=== PATIENT | female | born 1990 ===

== ENCOUNTER 2017-12-14 13:13 | Emergency (ER) | payer OTHER ==
[2017-12-14 13:29] VITALS: TEMP 98.2
--- NOTE | 2017-12-14 13:50 | C.PDOC ---
History Of Present Illness 27 y/o female presents to the ED c/o constant low right back pain radiating to the right suprapubic area for 1 week. The patient states that she had 2 episodes of vomiting on . Pain worsened with sitting or laying on the right side. The patient denies diarrhea, headaches, dizziness, and fever. Time Seen by Provider: 12/14/17 13:49 Chief Complaint (Nursing): Back Pain History Per: Patient History/Exam Limitations: language barrier Onset/Duration Of Symptoms: Days Current Symptoms Are (Timing): Still Present Previous Symptoms: Back Pain (low right pain radiating to the right suprapubic area. ) Additional History Per: Patient Past Medical History Reviewed: Historical Data, Nursing Documentation, Vital Signs Vital Signs: Last Vital Signs Temp 98.2 F 12/14/17 13:22 Pulse 58 L 12/14/17 19:46 Resp 16 12/14/17 19:46 BP 115/74 12/14/17 19:46 Pulse Ox 100 12/14/17 19:46 Family History: States: No Known Family Hx - Social History Hx Alcohol Use: No Hx Substance Use: No - Immunization History Hx Tetanus Toxoid Vaccination: No Hx Influenza Vaccination: No Hx Pneumococcal Vaccination: No Review Of Systems Except As Marked, All Systems Reviewed And Found Negative. Constitutional: Positive for: Other (normal appetite). Negative for: Fever Cardiovascular: Negative for: Chest Pain Respiratory: Negative for: Cough, Shortness of Breath Gastrointestinal: Positive for: Nausea. Negative for: Vomiting, Diarrhea, Constipation, Melena Genitourinary: Negative for: Dysuria, Frequency, Hematuria, Vaginal Discharge, Vaginal Bleeding Musculoskeletal: Positive for: Back Pain Skin: Negative for: Rash Neurological: Negative for: Weakness, Numbness Physical Exam - Physical Exam Appears: Well, Non-toxic Skin: Warm, Dry Head: Atraumatic, Normacephalic Eye(s): bilateral: PERRL Oral Mucosa: Moist Neck: Supple Cardiovascular: Rhythm Regular Respiratory: No Decreased Breath Sounds, No Accessory Muscle Use, No Rales, No Rhonchi, No Wheezing Gastrointestinal/Abdominal: Soft, No Tenderness, No Guarding, No Rebound Back: No Decreased ROM, Paraspinal Tenderness (right lumbar ) Extremity: Normal ROM, No Swelling Neurological/Psych: Oriented x3, Normal Motor, Normal Sensation, Other (nl strenth in b/l hip/knee/ankle flex/ext and EHL. reflexes sym, senstation intact. nag babinski no clonus.) ED Course And Treatment - Laboratory Results Result Diagrams: 12/14/17 14:11 12/14/17 14:11 O2 Sat by Pulse Oximetry: 100 (RA) - CT Scan/US abd/pelvis/Transvaginal US Other Rad Studies (CT/US): Read By Radiologist CT/US Interpretation: HISTORY: r low abd pain r/o torsion. COMPARISON: None available. TECHNIQUE: Real-time transabdominal pelvic ultrasound was performed. In addition a transvaginal pelvic ultrasound was necessary to better depict pelvic anatomy. FINDINGS: UTERUS: Measures 6.5 x 3.3 x 4.9 cm. Anteverted. Posterior fundal fibroid measures approximately 1.6 x 1.4 x 1.5 cm. ENDOMETRIUM: Measures 1.0 cm in diameter. CERVIX: No cervical abnormality identified. RIGHT OVARY: Measures 3.5 x 2.4 x 3.0 cm. Blood flow is demonstrated. LEFT OVARY: Measures 3.8 x 1.8 x 3.2 cm. Blood flow is demonstrated. FREE FLUID: No significant free fluid noted. OTHER FINDINGS: None. IMPRESSION: Posterior fundal fibroid measures approximately 1.6 x 1.4 x 1.5 cm. Progress Note: Transvaginal US and UA were performed. The patient was given Toradol for the pain. The patient is afebrile. 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 Disposition - Disposition Referrals: [facility] at [facility] [Outside] Disposition: HOME/ ROUTINE Disposition Time: 19:46 Condition: GOOD Additional Instructions: Please follow up with a primary doctor. Return to the ER for any worsening symptoms, fever, vomiting, or for any other concerns. Prescriptions: Ciprofloxacin [Cipro] 500 mg PO BID #20 tab Metronidazole [Flagyl] 500 mg PO TID #30 tablet Instructions: Enteritis (ED) Forms: Gen Discharge Inst Thai, [facility] (Thai), School Excuse, Work Excuse Print Language: CENTRAL AFRICAN - Clinical Impression Clinical Impression: Low back pain, Abdominal pain - Scribe Statement The provider has reviewed the documentation as recorded by the Scribe Alisha Benavides
[2017-12-14 14:15] LABS: BASO # 0.1 K/uL (0.0-0.2); EOS # 0.2 K/uL (0.0-0.7); EOS % 2.7 % (0.0-4.0); HEMOGLOBIN 13.6 g/dL (11.0-16.0); LYMPH # 2.3 K/uL (1.0-4.3); LYMPH % 35.6 % (20.0-40.0); MEAN CELL VOLUME 85.9 fL (81.0-99.0); MEAN CORPUSCULAR HEMOGLOBIN 29.5 pg (27.0-31.0); MEAN CORPUSCULAR HGB CONC 34.4 g/dL (33.0-37.0); MEAN PLATELET VOLUME 9.5 fL (7.2-11.7); MONO # 0.6 K/uL (0.0-0.8); MONO % 9.6 % (0.0-10.0); NEUT # 3.2 K/uL (1.8-7.0); NEUT % 51.1 % (50.0-75.0); NRBC % 0.1 % (0.0-2.0); RBC 4.63 Mil/uL (3.80-5.20); RED CELL DISTRIBUTION WIDTH 12.9 % (11.5-14.5); WHITE BLOOD COUNT 6.3 K/uL (4.8-10.8)
[2017-12-14 14:18] LABS: HCG,QUALITATIVE URINE NEGATIVE (NEGATIVE)
[2017-12-14 14:21] LABS: SQUAMOUS EPITHIAL 2 /hpf (0-5); URINE BILIRUBIN NEGATIVE (NEGATIVE); URINE BLOOD NEGATIVE (NEGATIVE); URINE CLARITY Clear (Clear); URINE COLOR Yellow (YELLOW); URINE GLUCOSE (UA) NORMAL (Normal); URINE LEUKOCYTE ESTERASE NEG Leu/uL (Negative); URINE NITRATE NEGATIVE (NEGATIVE); URINE PROTEIN NEGATIVE (NEGATIVE)
[2017-12-14 14:29] LABS: ALB/GLOB RATIO 1.3 (1.0-2.1); ALBUMIN 4.4 g/dL (3.5-5.0); ALT/SGPT 14 U/L (9-52); AST/SGOT 19 U/L (14-36); BLOOD UREA NITROGEN 13 mg/dL (7-17); CALCIUM 8.6 mg/dl (8.6-10.4); GFR AFRICAN-AMERICAN > 60; GFR NON-AFRICAN AMERICAN > 60; LIPASE 112 U/L (23-300)
[2017-12-14 15:41] VITALS: RESP 16
--- NOTE | 2017-12-14 16:42 | US ---
HISTORY: r low abd pain r/o torsion COMPARISON: None available. TECHNIQUE: Real-time transabdominal pelvic ultrasound was performed. In addition a transvaginal pelvic ultrasound was necessary to better depict pelvic anatomy. FINDINGS: UTERUS: Measures 6.5 x 3.3 x 4.9 cm. Anteverted. Posterior fundal fibroid measures approximately 1.6 x 1.4 x 1.5 cm. ENDOMETRIUM: Measures 1.0 cm in diameter. CERVIX: No cervical abnormality identified. RIGHT OVARY: Measures 3.5 x 2.4 x 3.0 cm. Blood flow is demonstrated. LEFT OVARY: Measures 3.8 x 1.8 x 3.2 cm. Blood flow is demonstrated. FREE FLUID: No significant free fluid noted. OTHER FINDINGS: None. IMPRESSION: Posterior fundal fibroid measures approximately 1.6 x 1.4 x 1.5 cm.
[2017-12-14] MEDS ORDERED: Iodixanol 320 mg/ml 150 ml Bottle IV ONE (17:23)
[2017-12-14 18:21] VITALS: O2SAT 100
--- NOTE | 2017-12-14 19:16 | CT ---
EXAM: CT Abdomen and Pelvis With Intravenous Contrast EXAM DATE/TIME: 12/14/2017 5:13 PM CLINICAL HISTORY: 27 years old, female; Pain; Abdominal pain; Generalized TECHNIQUE: Axial computed tomography images of the abdomen and pelvis with intravenous contrast. All CT scans at this facility use one or more dose reduction techniques, viz.: automated exposure control; ma/kV adjustment per patient size (including targeted exams where dose is matched to indication; i.e. head); or iterative reconstruction technique. Coronal and sagittal reformatted images were created and reviewed. CONTRAST: 100 mL of [id number] administered intravenously. COMPARISON: There are no prior studies for comparison. FINDINGS: Lower thorax: Heart size is normal. Lung bases are clear ABDOMEN: Liver: There is fatty infiltration of the liver. Gallbladder and bile ducts: unremarkable Pancreas: unremarkable Spleen: unremarkable Adrenals: unremarkable Kidneys and ureters: unremarkable Stomach and bowel: Stomach is partially distended. Rotation is normal. There is no obstruction. There are mildly distended small bowel loops in the right lower quadrant. Terminal ileum is unremarkable. Appendix is not visualized. There is no pericecal inflammation.There are no focal colonic abnormalities. Appendix: See stomach and bowel PELVIS: Bladder: unremarkable Reproductive: Uterus and adnexal structures are unremarkable. Uterus is anteflexed. There is a small exophytic fibroid. Adnexa are unremarkable. ABDOMEN and PELVIS: Intraperitoneal space: There is no significant fluid.There is no free air. There is no free air or free fluid. Bones/joints: There are no acute osseous abnormalities. Soft tissues: unremarkable Vasculature: Vascular structures are unremarkable. Vascular structures are unremarkable. Lymph nodes: There is no pathologic adenopathy. There is shotty adenopathy. IMPRESSION: Fatty liver, no acute solid visceral abnormality; nonvisualization the appendix with no CT findings of appendicitis; possible enteritis, no obstruction; shotty mesenteric adenopathy Additional nonemergent findings as described above.
[2017-12-14 19:47] VITALS: BP 115/74; PULSE 58
== END 2017-12-14 19:53 | disposition home or self-care (01) ==
LOC: C.ER 13:13
DX: M54.5 Low back pain (principal); R10.30 Lower abdominal pain, unspecified
CPT/HCPCS: 74177; 76830; 76856; 80053; 81001; 83690; 84703; 85025; 87086; 96374; 99285; J1885; Q9967

== ENCOUNTER 2018-06-13 12:05 | Emergency (ER) | payer OTHER ==
--- NOTE | 2018-06-13 13:32 | C.PDOC ---
History Of Present Illness 27 y/o female presents to ED with c/o suprapubic pain for 2 days radiating to right lower back associated with nausea. Patient states she thought symptoms were related to menses, but menses went away today and symptoms persisted. Patient admits that menses this month came in less amount than usual. Patient denies fever, vomiting, dysuria or any other complaints at this time. Time Seen by Provider: 06/13/18 13:09 Chief Complaint (Nursing): Abdominal Pain History Per: Patient History/Exam Limitations: no limitations Onset/Duration Of Symptoms: Days Current Symptoms Are (Timing): Still Present Location Of Pain/Discomfort: Suprapubic Past Medical History Reviewed: Historical Data, Nursing Documentation, Vital Signs Vital Signs: Last Vital Signs Temp 98.3 F 06/13/18 12:10 Pulse 85 06/13/18 12:10 Resp 18 06/13/18 12:10 BP 123/86 06/13/18 12:10 Pulse Ox 100 06/13/18 13:53 - Medical History PMH: No Chronic Diseases Surgical History: No Surg Hx Family History: States: No Known Family Hx - Social History Hx Alcohol Use: No Hx Substance Use: No - Immunization History Hx Tetanus Toxoid Vaccination: No Hx Influenza Vaccination: No Hx Pneumococcal Vaccination: No Review Of Systems Constitutional: Negative for: Fever, Chills Gastrointestinal: Positive for: Nausea, Abdominal Pain. Negative for: Vomiting Genitourinary: Negative for: Dysuria Musculoskeletal: Positive for: Back Pain Skin: Negative for: Rash Physical Exam - Physical Exam Appears: Non-toxic, No Acute Distress Skin: Warm, Dry, No Rash Head: Atraumatic, Normacephalic Eye(s): bilateral: Normal Inspection Oral Mucosa: Moist Neck: Normal ROM, Supple Cardiovascular: Rhythm Regular Respiratory: Normal Breath Sounds, No Rales, No Rhonchi, No Wheezing Gastrointestinal/Abdominal: Soft, No Tenderness, No Guarding, No Rebound Back: No CVA Tenderness, Other (right lower back tenderness) Neurological/Psych: Oriented x3, Normal Speech, Normal Motor, Normal Sensation ED Course And Treatment - Laboratory Results Result Diagrams: 06/13/18 14:07 06/13/18 14:07 O2 Sat by Pulse Oximetry: 100 (RA) Pulse Ox Interpretation: Normal Reevaluation Time: 16:02 Reassessment Condition: Improved Disposition Counseled Patient/Family Regarding: Studies Performed, Diagnosis, Need For Followup, Rx Given - Disposition Referrals: [facility] [Outside] [facility] [Outside] Disposition: HOME/ ROUTINE Disposition Time: 16:03 Condition: IMPROVED Prescriptions: Ibuprofen [Motrin] 600 mg PO Q6 #30 tab Instructions: Uterine Fibroids (DC) Forms: [employer] (Kazakh), Work Excuse Print Language: GREENLANDIC - Clinical Impression Clinical Impression: Pelvic pain, Fibroid - Scribe Statement The provider has reviewed the documentation as recorded by the Susie Marshall All medical record entries made by the Nannetteibhallie were at my direction and personally dictated by me. I have reviewed the chart and agree that the record accurately reflects my personal performance of the history, physical exam, medical decision making, and the department course for this patient. I have also personally directed, reviewed, and agree with the discharge instructions and disposition.
[2018-06-13] MEDS ORDERED: Sodium Chloride 0.9% 1,000 ML IV ONE (14:03)
[2018-06-13 14:12] LABS: SQUAMOUS EPITHIAL 4 /hpf (0-5); URINE BILIRUBIN NEGATIVE (NEGATIVE); URINE BLOOD 3+ (NEGATIVE); URINE CALCIUM OXALATE CRYSTALS OCC /hpf (<OCC); URINE CLARITY Hazy (Clear); URINE COLOR Yellow (YELLOW); URINE GLUCOSE (UA) NORMAL (Normal); URINE LEUKOCYTE ESTERASE NEG Leu/uL (Negative); URINE PROTEIN NEGATIVE (NEGATIVE); URINE UROBILINOGEN NORMAL mg/dL (0.2-1.0)
[2018-06-13 14:13] LABS: BASO % 0.7 % (0.0-2.0); EOS # 0.2 K/uL (0.0-0.7); EOS % 3.1 % (0.0-4.0); LYMPH % 35.5 % (20.0-40.0); MEAN CELL VOLUME 86.6 fL (81.0-99.0); MEAN CORPUSCULAR HEMOGLOBIN 29.2 pg (27.0-31.0); MEAN CORPUSCULAR HGB CONC 33.7 g/dL (33.0-37.0); MEAN PLATELET VOLUME 9.6 fL (7.2-11.7); MONO # 0.4 K/uL (0.0-0.8); MONO % 7.3 % (0.0-10.0); NEUT % 53.4 % (50.0-75.0); NRBC % 0.1 % (0.0-2.0); RBC 4.47 Mil/uL (3.80-5.20); WHITE BLOOD COUNT 5.7 K/uL (4.8-10.8)
[2018-06-13 14:27] LABS: BLOOD UREA NITROGEN 15 mg/dL (7-17); CALCIUM 9.5 mg/dl (8.6-10.4); GFR AFRICAN-AMERICAN > 60; GFR NON-AFRICAN AMERICAN > 60
--- NOTE | 2018-06-13 15:56 | US ---
Date of service: 06/13/2018 HISTORY: Pelvic pain RO TORSION COMPARISON: 12/14/2017. TECHNIQUE: Transabdominal and transvaginal pelvic ultrasound was performed. FINDINGS: UTERUS: Measures 6.7 x 3.1 x 4 point cm. Anteverted and normal in size. There is redemonstration of an essentially stable 2.0 x 1.3 x 1.6 cm subserosal posterior fundal fibroid. ENDOMETRIUM: Measures 3.0 mm in diameter. Normal in appearance. CERVIX: No cervical abnormality identified. RIGHT OVARY: Measures 4.2 x 2.2 x 2.5 cm. No solid mass. Normal flow. LEFT OVARY: Measures 3.9 x 3.1 x 2.1 cm. No solid mass. Normal flow. FREE FLUID: No significant free fluid noted. OTHER FINDINGS: None. IMPRESSION: 2.0 x 1.3 x 1.6 cm subserosal posterior fundal fibroid not significantly changed since the prior examination. No evidence for ovarian cyst.
[2018-06-13 16:38] VITALS: BP 116/78; PULSE 56; RESP 14; TEMP 98.6; O2SAT 99
== END 2018-06-13 16:35 | disposition home or self-care (01) ==
LOC: C.ER 12:05
DX: D25.9 Leiomyoma of uterus, unspecified (principal); R10.2 Pelvic and perineal pain
CPT/HCPCS: 76830; 76856; 80048; 81001; 85025; 96361; 96374; 96375; 99284; J1885; J2405; J7030

== ENCOUNTER 2019-01-02 09:28 | Outpatient (CLI) | payer MEDICAID | END 2019-01-02 09:29 | disposition home or self-care (01) | LOC: C.LAB 09:28 | DX: Z34.92 Encounter for supervision of normal pregnancy, unspecified, second trimester (principal) ==

== ENCOUNTER 2019-01-28 09:01 | Outpatient (CLI) | payer MEDICAID | END 2019-01-28 09:02 | disposition home or self-care (01) | LOC: C.LAB 09:01 | DX: Z34.93 Encounter for supervision of normal pregnancy, unspecified, third trimester (principal) ==

== ENCOUNTER 2019-02-20 09:31 | Outpatient (CLI) | payer MEDICAID | END 2019-02-20 09:32 | disposition home or self-care (01) | LOC: C.LAB 09:31 | DX: Z34.93 Encounter for supervision of normal pregnancy, unspecified, third trimester (principal) ==

== ENCOUNTER 2019-03-20 22:36 | Inpatient (IN) | payer SELFPAY ==
[2019-03-20 23:21] VITALS: BMI 28.9
[2019-03-20 23:43] LABS: SQUAMOUS EPITHIAL 9 /hpf (0-5); URINE BILIRUBIN NEGATIVE (NEGATIVE); URINE BLOOD NEGATIVE (NEGATIVE); URINE CLARITY Clear (Clear); URINE COLOR Straw (YELLOW); URINE GLUCOSE (UA) NORMAL (Normal); URINE LEUKOCYTE ESTERASE 1+ Leu/uL (Negative); URINE PROTEIN NEGATIVE (NEGATIVE); URINE UROBILINOGEN NORMAL mg/dL (0.2-1.0)
--- NOTE | 2019-03-21 00:31 | OBHP ---
Datetime: 03/21/2019 00:19 IP Adm Impression: Term, intrauterine ; Active labor; Ruptured Membranes IP Admit Plan: Admit to unit; Initiate labor protocol Admit Comment, IP Provider: 28 YO female G1 with an IUP at 40.3 weeks and presented with c/o of UC's Q 3-5 minutes since about 9PM and associated with a watery discharge that feels like "I am Peeing on myself". Denies V B or any other problems. Admits to adequate FM. PMHx and PSHx Negative Meds PNV NKDA Social Hx denies x 3 PE as noted above A/P Term SROM - clear fluid In labor GBS Negative NST reactive Will admit for a vaginal delivery Undecided re Epidural Anesthesia and counseled about it. See orders Pelvic Type - PN: Adequate Extremities - PN: Normal Abdomen - PN: Normal Back - PN: Normal Breast - PN: Not Done Lungs - PN: Normal Heart - PN: Normal Thyroid - PN: Normal Neurologic - PN: Normal HEENT - PN: Normal General - PN: Normal Presentation-Admit: Vertex FHR - Baseline A Provider: 130 Amniotic Fluid Color, Provider: Clear Membranes, Provider: Ruptured Contraction Comments Provider: 3-4 Gestation - Est Wks by US: 40.3 Pool Provider: Positive Nitrazine Provider: Positive IP Hx Assessment: The History has been Reviewed and is Current EGA AdmitDate IP: 40.3 Vital Signs Provider: Reviewed IP Indication for Induction: Not Applicable IP Chief Complaint: Uterine contractions; Suspected ruptured membranes NICHD Variability Prov Fetus A: Moderate 6-25bpm NICHD Accel Fetus A IP Provider: 10X10 FHR Category Provider Fetus A: Category I NICHD Decel Fetus A IP Provider: None Dilatation, Provider: 3 Effacement, Provider: 100 Station, Provider: -2 Genitourinary Exam: Normal DTRs - PN: Normal
--- NOTE | 2019-03-21 00:41 | OBADHP ---
Datetime: 03/21/2019 00:19 Admit Comment, IP Provider: 28 YO female G1 with an IUP at 40.3 weeks and presented with c/o of UC's Q 3-5 minutes since about 9PM and associated with a watery discharge that feels like "I am Peeing on myself". Denies V B or any other problems. Admits to adequate FM. PMHx and PSHx Negative Meds PNV NKDA Social Hx denies x 3 PE as noted above A/P Term SROM - clear fluid In labor GBS Negative NST reactive Will admit for a vaginal delivery Undecided re Epidural Anesthesia and counseled about it. See orders Pelvic Type - PN: Adequate Extremities - PN: Normal Abdomen - PN: Normal Back - PN: Normal Breast - PN: Not Done Lungs - PN: Normal Heart - PN: Normal Thyroid - PN: Normal Neurologic - PN: Normal HEENT - PN: Normal General - PN: Normal Presentation-Admit: Vertex FHR - Baseline A Provider: 130 Amniotic Fluid Color, Provider: Clear Membranes, Provider: Ruptured Contraction Comments Provider: 3-4 Gestation - Est Wks by US: 40.3 Pool Provider: Positive Nitrazine Provider: Positive IP Hx Assessment: The History has been Reviewed and is Current Vital Signs Provider: Reviewed IP Chief Complaint: Uterine contractions; Suspected ruptured membranes NICHD Variability Prov Fetus A: Moderate 6-25bpm NICHD Accel Fetus A IP Provider: 10X10 FHR Category Provider Fetus A: Category I NICHD Decel Fetus A IP Provider: None Dilatation, Provider: 3 Effacement, Provider: 100 Station, Provider: -2 Genitourinary Exam: Normal DTRs - PN: Normal EGA AdmitDate IP: 40.3 IP Adm Impression: Term, intrauterine ; Active labor; Ruptured Membranes IP Admit Plan: Admit to unit; Initiate labor protocol
[2019-03-21] MEDS ORDERED: Lactated Ringer's 1,000 ML IV ONE (00:44)
[2019-03-21] MEDS ORDERED: Lactated Ringer's 1,000 ML IV SCH (00:45)
[2019-03-21 01:10] LABS: BASO % 0.1 % (0.0-2.0); EOS # 0.1 K/uL (0.0-0.7); EOS % 1.2 % (0.0-4.0); HEMOGLOBIN 12.6 g/dL (11.0-16.0); LYMPH # 2.2 K/uL (1.0-4.3); LYMPH % 22.5 % (20.0-40.0); MEAN CELL VOLUME 86.6 fL (81.0-99.0); MEAN CORPUSCULAR HEMOGLOBIN 28.9 pg (27.0-31.0); MEAN CORPUSCULAR HGB CONC 33.4 g/dL (33.0-37.0); MEAN PLATELET VOLUME 10.7 fL (7.2-11.7); MONO # 0.6 K/uL (0.0-0.8); MONO % 5.7 % (0.0-10.0); NEUT # 6.8 K/uL (1.8-7.0); NEUT % 70.5 % (50.0-75.0); RBC 4.37 Mil/uL (3.80-5.20); RED CELL DISTRIBUTION WIDTH 14.4 % (11.5-14.5); WHITE BLOOD COUNT 9.7 K/uL (4.8-10.8)
[2019-03-21 01:21] LABS: ALB/GLOB RATIO 1.1 (1.0-2.1); ALBUMIN 3.8 g/dL (3.5-5.0); ALT/SGPT 13 U/L (9-52); AST/SGOT 21 U/L (14-36); BLOOD UREA NITROGEN 9 mg/dL (7-17); CALCIUM 9.4 mg/dl (8.6-10.4); GFR NON-AFRICAN AMERICAN > 60
[2019-03-21] MEDS: AMPicillin 1 GM in Sodium Chloride 0.9% 100 ML IVPB SCH ×2 (01:21→10:42)
[2019-03-21] MEDS ORDERED: Fentanyl/Bupivacaine HCl 250 ML EPI ONE (02:07)
[2019-03-21] MEDS ORDERED: Oxytocin 30 UNIT in NS 500 ml 30 UNITS/500 ML BAG IV ONE (06:57)
[2019-03-21] MEDS ORDERED: Oxytocin 30 UNIT in NS 500 ml 30 UNITS/500 ML BAG IV SCH (07:00)
--- NOTE | 2019-03-21 07:12 | OBPN ---
Datetime: 03/21/2019 07:02 IP Progress Impression: Normal progression of labor; Reassuring heart rate IP Informed Consent Obtain: Vaginal Delivery IP Procedures: Sterile Vag Exam; Epidural Placement IP Progress Plan: Augmentation Membranes, Provider: Ruptured Amniotic Fluid Color, Provider: Clear Contraction Comments Provider: 4-5 FHR - Baseline A Provider: 130 Gestation - Est Wks by US: 40.3 Presentation-Admit: Vertex IP Progress Note Comment: Pt seen and examined Epidural working well Progressing in labor VSS, Afebrile after SROM Will start Pitocin for Augmentation Anticipate Vaginal Delivery Vital Signs Provider: Reviewed; Within Normal Limits NICHD Accel Fetus A IP Provider: 10X10 NICHD Variability Prov Fetus A: Moderate 6-25bpm Dilatation, Provider: 5 Effacement, Provider: 100 Station, Provider: -1 Datetime: 03/21/2019 00:19 Pool Provider: Positive Nitrazine Provider: Positive FHR Category Provider Fetus A: Category I NICHD Decel Fetus A IP Provider: None
[2019-03-21] MEDS ORDERED: Sodium Citrate/Citric Acid 15 ml Sol ONE (07:32)
[2019-03-21] MEDS ORDERED: cefOXitin IV 2 gm in Dextrose 0 GM/0 ML BAG IVPB ONE (07:33)
[2019-03-21] MEDS ORDERED: Oxycodone/Acetaminophen 5/325 mg Tab PO PRN (14:00)
--- NOTE | 2019-03-21 14:06 | OBDS ---
DELIVERY PERSONNEL Delivery Doctor: Dr. flory Barton Nurse: Nyasia Cha Assembler And Tester Electronics: Linda Pedersen RN Anesthesiologist: Handy MATERNAL INFORMATION Delivery Anesthesia: Epidural Estimated Blood Loss (ml): 250 Placenta Cultured: No Maternal Complications: None Provider Comments: The head was delivered over an intact perieum. the head delivered PASCALE. No n uchal cord was noted. The anterior and posterior shoulder delivered w/o difficulty. The cord was clam ped cut and infant was handed to peds for futher care. The placenta was delivered intact with 3 vesse l cord. There was a second degree perineal lacteraion that was noted and repaired with 2.0 vicyl x 2 . The hemostasis was excellent. All sponge and insturment count was noted to be correct at the end of the procedure. LABOR SUMMARY EDC: 03/18/2019 00:00 No. Babies in Womb: 1 Attempted: No Labor Anesthesia: Epidural LABOR INFORMATION Reason for Induction: Not Applicable Onset of Labor: 03/21/2019 00:00 Complete Dilatation: 03/21/2019 12:15 Oxytocin: Augmentation Group B Beta Strep: Negative Antibiotics # of Doses: 2 Steroids Given: None Reason Steroids Not Administered: Not Applicable MEMBRANES Membranes Rupture Method: Spontaneous Rupture of Membranes: 03/21/2019 00:00 Length of Rupture (hrs): 13.53 Amniotic Fluid Color: Clear Amniotic Fluid Amount: Small Amniotic Fluid Odor: None STAGES OF LABOR Stage 1 hrs: 12 Stage 1 min: 15 Stage 2 hrs: 1 Stage 2 min: 17 Stage 3 hrs: 0 Stage 3 min: 4 Total Time in Labor hrs: 13 Total Time in Labor min: 36 VAGINAL DELIVERY Laceration Extension: Second Degree Laceration Type: Vaginal Laceration Repair Note: THE 2ND DEGREE PERINEAL LACERATIONA WAS REPAIRED WITH 2.0 VICRYL. X 2 BABY A INFORMATION Delivery Date/Time: 03/21/2019 13:32 Method of Delivery: Vaginal Born in Route : Yes : N/A Forceps: N/A Vacuum Extraction: N/A Shoulder Dystocia : No SHOULDER DYSTOCIA BABY A Delivery Date/Time: 03/21/2019 13:32 PRESENTATION/POSITION BABY A Presentation: Cephalic Cephalic Presentation: Vertex Vertex Position: Left Occipital Anterior Breech Presentation: N/A PLACENTA INFORMATION BABY A Placenta Delivery Time : 03/21/2019 13:36 Placenta Method of Delivery: Spontaneous Placenta Status: Delivered SCORES BABY A Heart Rate 1 min: >100 bpm Resp Effort 1 min: Good Cry Reflex Irritability 1 min: Cough or Sneeze or Pulls Away Muscle Tone 1 min: Active Motion Color 1 min: Body [place], Extremities Blue Resuscitation Effort 1 min: N/A SCORE 1 MIN: 9 Heart Rate 5 min: >100 bpm Resp Effort 5 min: Good Cry Reflex Irritability 5 min: Cough or Sneeze or Pulls Away Muscle Tone 5 min: Active Motion Color 5 min: Body [place], Extremities Blue Resuscitation Effort 5 min: N/A SCORE 5 MIN: 9 INFANT INFORMATION BABY A Gestational Age at Delivery: 40.0 Gestational Status: Term Outcome : Liveborn Infant Condition : Stable Sex: Female IDENTIFICATION/MEDS BABY A ID Band Number: [id number] ID Band Location: Left Leg; Left Arm Sensor Applied: Yes Sensor Number: [id number] Sensor Location : Cord Clamp Vitamin K Given : Aquamephyton 1 mg IM Erythromycin Given: Given Both Eyes WEIGHT/LENGTH BABY A Birthweight (gms): 2845 Weight (lb): 6 Infant Weight (oz): 4 Length Inches: 18.75 Infant Length cms: 47.6 CORD INFORMATION BABY A No. Cord Vessels: 3 Nuchal Cord : N/A Cord Blood Taken: Yes Suction: Mouth; Nose ASSESSMENT BABY A Complications: None Physical Findings at Delivery: Within Normal Limits Infant Respirations: Appears Normal Radiologic Technologist/ALS Called : No Transferred To: Remains with Mother
[2019-03-21] MEDS: Benzocaine/Menthol 20%-0.5% Topical Spray (60 ml) TOP PRN (21:27)
[2019-03-22 08:26] VITALS: RESP 18
[2019-03-22] MEDS: AMPicillin 1 GM in Sodium Chloride 0.9% 100 ML IVPB SCH ×4 (10:00→17:44)
--- NOTE | 2019-03-22 13:02 | OBPPN ---
Datetime: 03/22/2019 10:52 PP Pain Prov: Within normal limits PP Nausea Prov: Denies PP Flatus Prov: No PP BM Prov: No PP Breasts Prov: Not Done PP Heart Prov: Normal PP Lungs Prov: Normal PP Abdomen/Uterus Prov: Normal PP Lochia Prov: Normal PP Vulva/Perineum Prov: Not Done PP CVA Tenderness Prov: Normal PP Extremities Prov: Normal PP Comments Phys Exam Prov: Fundus firm, non-tender an below umbilicus PP Impression Prov: Normal progression; difficulties; Pain PP Plan Prov: Continue present management; consult PP Impression Other Prov: Perineal pain PP Progress Note Prov: PPD # 1 S/P with 2nd degre perineal care Nursing Perineal care not initiated yet and encoudaged and discussed with patient at full Sitz baths and Hydrocortisone cream ordered as well as tucks, Cleaning bottle and Dermoplast to be encouraged Breastfeedig difficulties and encouraged to do it Q 2 hours. consult indicated On Ampicillin for Empiric treatment of UTI but not given since delivery and advised to continue fo r now PP H_H 12.6/37.9 [facility] to D/C home in AM W Vital Signs Provider PP: Reviewed
[2019-03-22] MEDS: Benzocaine/Menthol 20%-0.5% Topical Spray (60 ml) TOP PRN (17:47)
--- NOTE | 2019-03-23 14:50 | OBDCSUM ---
Datetime: 03/23/2019 08:46 Discharged to, Provider: Home Follow up at, Provider: rashad Disch Instr Activity: Normal activity Disch Instr Diet: Regular Discharge Instructions, Provider: Routine instructions given Discharge Diagnosis, Provider: Term Delivered Discharge Time: 03/23/2019 12:45 Follow up in weeks, Provider: april Disch Referrals: None Disch Activity Restrictions: No lifting; Minimize stair-climbing; No sexual activity; Nothing in vag jef - [place], tampons, douche Discharge Comment, Provider: 28F presented on 03/21 w/ IUP @ 40.3 weeks S/P on 03/21 w/ 2nd degree perineal laceration PPD#2 Patient reports pain is well controlled, denies any N/V, abd pain. Passing gas, has BM, voiding ap propriately. Bleeding is well controlled, patient is breast feeding. Adequately hydrating, ambulating within room w/o any issue. Denies fevers, chills, chest pain, sob, headache/dizziness. VSS Labs reviewed General: NAD Cardio: RRR, No murmur Lungs: CTABL, no rales/ronchi/ wheeze Abd: Soft + non tender; uterus 1 finger breadth above umbilicus LE: Trace edema BL, Distal pulses 2+ BL A/P 28F S/P PPD#2 Admitted with UTI and started on Ampicillin po. Now on Macrobid Discharge home w/ routine instructions and Rx for Motrin, Colace and to complete Macrobid c/w dermaplast and all other perineal care instructions c/w senokot/ colace c/w macrobid 100 BID Encourage ambulation, hydration, breast feeding Patient was seen, examined, discussed w/ attending Rossy Morales DO PGY1 Pt seen and examined with Dr. Bucio and agree with his findings and POC
[2019-03-23 19:35] VITALS: BP 117/72; PULSE 57; TEMP 97.3; O2SAT 100
== END 2019-03-23 14:30 | disposition home or self-care (01) | DRG 806 ==
LOC: C.EROB 22:36 → C.4D 03-21 00:18 → C.4M 03-21 15:40
PROVIDERS: ADMIT Obstetrics & Gynecology; ATTEND Obstetrics & Gynecology
PROC: 0KQM0ZZ Repair Perineum Muscle, Open Approach (ICD-10-PCS; principal; 2019-03-21)
PROC: 10E0XZZ Delivery of Products of Conception, External Approach (ICD-10-PCS; 2019-03-21)
DX: O70.1 Second degree perineal laceration during delivery (principal); O23.43 Unspecified infection of urinary tract in pregnancy, third trimester; Z37.0 Single live birth; Z3A.40 40 weeks gestation of pregnancy